=== PATIENT | female | born 1950 | race Caucasian/White ===

== ENCOUNTER 2018-12-04 05:53 | Day surgery (SDC) | payer MEDICARE ==
[2018-12-04] MEDS ORDERED: Sodium Chloride 0.9% 10 ML Syringe FLUSH PRN (06:30)
[2018-12-04 08:05] VITALS: BP 162/89
--- NOTE | 2018-12-04 10:33 | OR ---
DATE OF PROCEDURE: 12/04/2018 POSTOPERATIVE CARE: Postoperative care will be provided mainly at the [address] [place] [address] [facility] in conjunction with [facility]. PREOPERATIVE DIAGNOSIS: Cataract, right eye. POSTOPERATIVE DIAGNOSIS: Cataract, right eye. PROCEDURE: Phacoemulsification with intraocular lens placement, right eye. ANESTHESIA: Topical and intracameral. ESTIMATED BLOOD LOSS: Minimal. COMPLICATIONS: None. PATHOLOGY SPECIMENS: None. SURGICAL FINDINGS: None. INDICATION FOR PROCEDURE: The patient is a 68-year-old female with history of a visually significant cataract in the right eye, which interfered with activities of daily living. This consisted of a nuclear sclerosis cataract. Following careful discussion of the risks, benefits and alternatives to cataract extraction with intraocular lens placement including blindness and , the patient elected to proceed, and informed, written consent was obtained prior to the procedure. DESCRIPTION OF THE PROCEDURE: The patient was previously identified, and a vick placed above the right eye. All sources, including the patient, indicated that the right eye was the correct eye. The patient was subsequently taken to the operating room where standard monitors were applied. The patient was then prepped and draped in the usual sterile fashion for ophthalmic surgery. Attention was first directed at the 12 o'clock position where a paracentesis port was fashioned. Shugar solution followed by Viscoat was instilled into the eye. Attention was then directed to the 8:30 position where a triplanar incision was made in a near-clear manner using a keratome. A continuous capsulorrhexis was then made using a combination of the cystotome and Utrata forceps. Hydrodissection was achieved using a balanced salt solution, and the lens rotated nicely. Phacoemulsification was then done using a modified dqofky-duo-ctnqjyk technique without complication. Phaco time was 5.17 CDE. The remaining cortex was removed using the irrigation/aspiration handpiece. Provisc was then instilled into the eye. A Technis lens, model [id number], at 12.5 Diopters was then placed in the capsular bag using an [employer] injector. The remaining viscoelastic was removed using the irrigation/aspiration forceps. All wounds were then checked and found to be watertight. The lid speculum and drapes were removed. Maxitrol ointment was placed in the patient's right eye, and the eye was shielded. The patient tolerated the procedure well. The patient was instructed to follow up tomorrow. All needle and sponge counts were correct at the end of the procedure. There were no surgical findings. Josefa Maharaj MD /[id number]
== END 2018-12-04 08:00 | disposition home or self-care (01) ==
LOC: JP.SDS 05:53
PROVIDERS: ATTEND Ophthalmology
DX: H25.11 Age-related nuclear cataract, right eye (principal); E66.9 Obesity, unspecified; Z68.34 Body mass index [BMI] 34.0-34.9, adult; Z88.2 Allergy status to sulfonamides; Z88.0 Allergy status to penicillin
CPT/HCPCS: 66984; V2632

== ENCOUNTER 2018-12-25 07:16 | Day surgery (SDC) | payer MEDICARE ==
[2018-12-25] MEDS ORDERED: Sodium Chloride 0.9% 10 ML Syringe FLUSH PRN (08:00)
[2018-12-25 09:54] VITALS: BP 162/75
--- NOTE | 2018-12-25 13:31 | OR ---
DATE OF PROCEDURE: 12/25/2018 POSTOPERATIVE CARE: Postoperative care will be provided mainly at the [address] [place] [address] [facility] in conjunction with [facility]. PREOPERATIVE DIAGNOSIS: Cataract, left eye. POSTOPERATIVE DIAGNOSIS: Cataract, left eye. PROCEDURE: Phacoemulsification with intraocular lens placement, left eye. ANESTHESIA: Topical and intracameral. ESTIMATED BLOOD LOSS: Minimal. COMPLICATIONS: None. PATHOLOGY SPECIMENS: None. SURGICAL FINDINGS: None. INDICATION FOR PROCEDURE: The patient is a 68-year-old female with history of a visually significant cataract in the left eye, which interfered with activities of daily living. This consisted of a nuclear sclerosis cataract. Following careful discussion of the risks, benefits and alternatives to cataract extraction with intraocular lens placement including blindness and , the patient elected to proceed, and informed, written consent was obtained prior to the procedure. DESCRIPTION OF THE PROCEDURE: The patient was previously identified, and a vick placed above the left eye. All sources, including the patient, indicated that the left eye was the correct eye. The patient was subsequently taken to the operating room where standard monitors were applied. The patient was then prepped and draped in the usual sterile fashion for ophthalmic surgery. Attention was first directed at the 12 o'clock position where a paracentesis port was fashioned. Shugar solution followed by Viscoat was instilled into the eye. Attention was then directed to the 8:30 position where a triplanar incision was made in a near-clear manner using a keratome. A continuous capsulorrhexis was then made using a combination of the cystotome and Utrata forceps. Hydrodissection was achieved using a balanced salt solution, and the lens rotated nicely. Phacoemulsification was then done using a modified bequcn-lfy-mlbrhzi technique without complication. Phaco time was 5.05 CDE. The remaining cortex was removed using the irrigation/aspiration handpiece. Provisc was then instilled into the eye. A Technis lens, model [id number], at 11.5 Diopters was then placed in the capsular bag using an [place] injector. The remaining viscoelastic was removed using the irrigation/aspiration forceps. All wounds were then checked and found to be watertight. The lid speculum and drapes were removed. Maxitrol ointment was placed in the patient's left eye, and the eye was shielded. The patient tolerated the procedure well. The patient was instructed to follow up tomorrow. All needle and sponge counts were correct at the end of the procedure. There were no surgical findings. Josefa Maharaj MD /[id number]
== END 2018-12-25 09:59 | disposition home or self-care (01) ==
LOC: JP.SDS 07:16
PROVIDERS: ATTEND Ophthalmology
DX: H25.12 Age-related nuclear cataract, left eye (principal)

== ENCOUNTER 2020-08-07 19:32 | Emergency (ER) | payer MEDICARE ==
[2020-08-07 19:52] VITALS: BP 161/85; PULSE 98
--- NOTE | 2020-08-07 20:09 | EDM.PDOC ---
ED HPI GENERAL MEDICAL PROBLEM - General Chief Complaint: Cardiovascular Problem Stated Complaint: HEART FLUTTERING Time Seen by Provider: 08/07/20 20:00 Source of Information: Reports: Patient, Family History Limitations: Reports: No Limitations - History of Present Illness INITIAL COMMENTS - FREE TEXT/NARRATIVE: 69-year-old female with a history anxiety and panic, developed tachycardia within the last 2 hours and it did not seem to be improving so she came in to be checked. She had a regular pulse with mild tachycardia and waiting room, and when placed on the monitor she is in a sinus rhythm and a normal pulse. No chest pain, no significant shortness of breath. Onset: Sudden (Started fairly suddenly a couple hours ago) Associated Symptoms: Reports: Other (Anxiety) denies pain Pain Score (Numeric/FACES): 0 - Related Data Allergies Allergy/AdvReac Type Severity Reaction Status Date / Time gluten Allergy Diarrhea Verified 08/07/20 19:48 Penicillins Allergy Rash Verified 08/07/20 19:48 turkey Allergy Diarrhea Verified 08/07/20 19:48 Home Meds: Home Meds Aspirin [Lo-Dose Aspirin EC] 81 mg PO DAILY 10/12/16 [History] Cholecalciferol (Vitamin D3) [Vitamin D3] 5,000 units PO DAILY 10/12/16 [History] Herbal Complex No.218 [Serenagen] 1 tab PO BID 10/12/16 [History] [place]-3 Fatty Acids [Fish Oil] 1,600 tab PO BID 10/12/16 [History] Rauwolfia Serpentina 1 cap PO BID 10/12/16 [History] Ubidecarenone [Co Q-10] 200 mg PO DAILY 12/04/18 [History] D-Mannose [Mannose] 2 tab PO BID 12/25/18 [History] Fruits And Greens 1 tab PO DAILY 12/25/18 [History] Liver Care 1 tab PO DAILY 12/25/18 [History] Arias Epa/Dha 2 tab PO BID 12/25/18 [History] Mood Food Es 1 tab PO QPM 12/25/18 [History] Ther-Biotic Complete 1 tab PO QAM 12/25/18 [History] Vegecleanse 1 tab PO DAILY 12/25/18 [History] Past Medical History HEENT History: Reports: Allergic Rhinitis, Cataract, Glaucoma, Impaired Vision, Other (See Below) Other HEENT History: wears glasses Cardiovascular History: Reports: Hypertension Gastrointestinal History: Reports: Celiac Disease, Chronic Diarrhea, Other (See Below) Other Gastrointestinal History: "heart burn once in awhile" Genitourinary History: Reports: None CLIENT SUPPORT CONSULTANT History: Reports: Musculoskeletal History: Reports: Arthritis, Other (See Below) Other Musculoskeletal History: fractured fingers and toes Psychiatric History: Reports: Anxiety, Depression, Panic Attack Endocrine/Metabolic History: Reports: Obesity/BMI 30+, Other (See Below) Other Endocrine/Metabolic History: Pre diabetic Hematologic History: Reports: B12 Deficiency Dermatologic History: Reports: Other (See Below) Other Dermatologic History: rash when eats gluten - Infectious Disease History Infectious Disease History: Reports: Chicken Pox, Measles - Past Surgical History HEENT Surgical History: Reports: Cataract Surgery Cardiovascular Surgical History: Reports: None GI Surgical History: Reports: None Female Surgical History: Reports: Tubal Ligation Endocrine Surgical History: Reports: None Musculoskeletal Surgical History: Reports: None Dermatological Surgical History: Reports: None Social & Family History - Family History Family Medical History: Unobtainable - Tobacco Use Tobacco Use Status *Q: Never Tobacco User - Caffeine Use Caffeine Use: Reports: None - Recreational Drug Use Recreational Drug Use: No ED ROS GENERAL - Review of Systems Review Of Systems: See Below Constitutional: Denies: Chills, Malaise HEENT: Reports: No Symptoms Respiratory: Reports: Shortness of Breath Cardiovascular: Reports: Palpitations GI/Abdominal: Denies: Nausea, Vomiting Neurological: Reports: No Symptoms Psychiatric: Reports: Anxiety ED EXAM, GENERAL - Physical Exam Exam: See Below Exam Limited By: No Limitations General Appearance: Alert, No Apparent Distress, Anxious Eye Exam: Bilateral Eye: Normal Inspection Head: Atraumatic Respiratory/Chest: No Respiratory Distress, Lungs Clear Cardiovascular: Regular Rate, Rhythm Neurological: Alert, Oriented Psychiatric: Anxious Skin Exam: Warm, Dry Course - Vital Signs Last Recorded V/S: Last Vital Signs Temp 100.2 F 08/07/20 19:52 Pulse 98 08/07/20 19:52 Resp 14 08/07/20 19:52 BP 161/85 H 08/07/20 19:52 Pulse Ox 97 08/07/20 19:52 - Re-Assessments/Exams Free Text/Narrative Re-Assessment/Exam: 08/07/20 20:08 nuclear monitoring technician shows normal sinus rhythm, normal O2 sats and stable vitals. Patient was reassured. Departure - Departure Time of Disposition: 20:19 Disposition: Home, Self-Care 01 Clinical Impression: Anxiety about health, Palpitations Instructions: Palpitations, [id number] Referrals: Leslie Lara MD [Primary Care Provider] - Forms: ED Department Discharge Care Plan Goals: Rest tonight, increase activity as tolerated and return anytime if worsening or concerns. Sepsis Event Note (ED) - Evaluation Sepsis Screening Result: No Definite Risk - Focused Exam Vital Signs: Vital Signs Temp Pulse Resp BP Pulse Ox 08/07/20 19:52 100.2 F 98 14 161/85 H 97 08/07/20 19:50 100.2 F 98 14 161/85 H 97
== END 2020-08-07 20:15 | disposition home or self-care (01) ==
LOC: JP.ED 19:32
DX: F41.9 Anxiety disorder, unspecified (principal); I10 Essential (primary) hypertension; M19.90 Unspecified osteoarthritis, unspecified site; E66.9 Obesity, unspecified; Z68.36 Body mass index [BMI] 36.0-36.9, adult; Z91.018 Allergy to other foods; Z88.0 Allergy status to penicillin; Z79.82 Long term (current) use of aspirin; Z79.899 Other long term (current) drug therapy
CPT/HCPCS: 99283; 99284